=== PATIENT | female | born 1960 ===

== ENCOUNTER 2020-08-17 10:30 | Day surgery (SDC) | payer OTHER ==
[~2020-08-17 10:30] MED LIST: CLONAZEPAM2 MG PO; ENALAPRIL MALEA10 MG PO; GLIPIZIDE XL10 MG PO; JENTADUETO 2.51 EAC2 PO; LANTUS; TRAZODONE HCL150 MG PO; ZOCOR20 MG PO; ZOLOFT PO
== END 2020-08-17 18:40 | disposition home or self-care (01) ==
LOC: CIR.AMB 10:30
PROVIDERS: ATTEND Orthopaedic Surgery Sports Medicine
DX: S83.241A Other tear of medial meniscus, current injury, right knee, initial encounter (principal); M94.261 Chondromalacia, right knee; Z20.822 Contact with and (suspected) exposure to COVID-19